=== PATIENT | female | born 1990 | race Caucasian/White ===

== ENCOUNTER 2018-09-15 20:40 | Emergency (ER) | payer SELFPAY, OTHER ==
[2018-09-15] MEDS: IBUPROFEN 200 MG TAB PO (21:48)
[2018-09-15] MEDS: ACETAMINOPHEN 325 MG TAB PO ×2 (22:27→22:28)
[2018-09-15] MEDS: SOD CHLORIDE 0.9% 1,000 ML IV (22:49)
[2018-09-15] MEDS: ACETAMINOPHEN 500 MG TAB PO (22:51)
[2018-09-15 22:58] LABS: URINE BLOOD (Dip) POC Trace-lysed (NEGATIVE); URINE GLUCOSE (Dip) POC Negative (NEGATIVE); URINE KETONES (Dip) POC Negative (NEGATIVE); URINE LEUKOCYTE EST (Dip) POC Negative (NEGATIVE); URINE NITRITE (Dip) POC Negative (NEGATIVE); URINE TOTAL PROTEIN POC Negative (NEGATIVE)
[2018-09-15 22:58] LABS: URINE PH (Dip) POC 7.5 (5.0-8.5)
[2018-09-16] MEDS: SOD CHLORIDE 0.9% 1,000 ML IV
== END 2018-09-16 01:56 | disposition home or self-care (01) ==
LOC: E/R 20:40
DX: R50.9 Fever, unspecified (principal); R40.2142 Coma scale, eyes open, spontaneous, at arrival to emergency department; R40.2362 Coma scale, best motor response, obeys commands, at arrival to emergency department; R40.2252 Coma scale, best verbal response, oriented, at arrival to emergency department; R53.1 Weakness; R52 Pain, unspecified; R09.81 Nasal congestion
CPT/HCPCS: 71045; 81003; 81025; 96360; 96361; 99284-25